=== PATIENT | female | born 1970 | race Caucasian/White ===

== ENCOUNTER → 2017-07-14 | Outpatient (REF) | payer OTHER | LOC: M SFHCLERA 13:57 | PROVIDERS: ATTEND Nurse Practitioner Family | DX: J02.9 Acute pharyngitis, unspecified (principal) ==

== ENCOUNTER → 2018-01-22 | Outpatient (REF) | payer OTHER | LOC: M SFHCLERA 13:34 | DX: J02.0 Streptococcal pharyngitis (principal) ==